=== PATIENT | female | born 1980 | race Caucasian/White ===

== ENCOUNTER 2018-09-15 07:48 | Day surgery (SDC) | payer MEDICAID ==
[~2018-09-15] VITALS: Ht 167.6 cm; Wt 90.7 kg
[2018-09-15] MEDS ORDERED: APIX5TAB MT (09:48)
[2018-09-15] MEDS ORDERED: METO-385 PO (09:48)
[2018-09-15] MEDS ORDERED: MIDAZOLAM HCL 2 MG/2 ML VIAL ONE ×5 (10:30→11:56)
[2018-09-15] MEDS ORDERED: FENTANYL CITRATE/PF 50MCG/ML 2ML VIAL ONE (10:30)
[2018-09-15 10:36] LABS: HEMATOCRIT 35.4 % (36.0-48.0); HEMOGLOBIN 11.7 g/dL (12.0-16.0); MEAN CORPUSCULAR HEMOGLOBIN 25.8 pg (28.0-32.0); MEAN CORPUSCULAR VOLUME 77.8 fL (81.0-99.0); PLATELET 201 x1000/uL (130-400); RED BLOOD CELL COUNT 4.55 mill/uL (4.2-5.4); RED CELL DISTRIBUTION WIDTH 16.1 % (11.6-14.6)
[2018-09-15 10:41] LABS: CHLORIDE 106 mEq/L (98-107); PARTIAL THROMBOPLASTIN TIME 32.4 sec (23.4-31.0); PROTHROMBIN TIME 10.6 sec (9.6-11.0)
[2018-09-15] MEDS ORDERED: IBUTILIDE FUMARATE 0.1MG/ML 10ML VIAL IV ONE (11:41)
== END 2018-09-15 19:00 | disposition home or self-care (01) ==
LOC: CCL 07:48
PROVIDERS: ATTEND Specialist
DX: I48.1 Persistent atrial fibrillation (principal); R94.31 Abnormal electrocardiogram [ECG] [EKG]; Z79.899 Other long term (current) drug therapy
CPT/HCPCS: 36415; 80048; 85027; 85610; 85730; 92960; 93005; 99152; 99153; J1742; J2250; J3010

== ENCOUNTER → 2019-11-17 | Outpatient (CLI) | payer MEDICAID ==
[~2019-11-17] MED LIST: APIX5TAB MT; CEFAZOLIN SODIUM 1000MG/VIAL ONE; EPHEDRINE SULFATE 50MG/ML VIAL ONE; FENTANYL CITRATE/PF 50MCG/ML 2ML VIAL ONE; GLYCOPYRROLATE 0.2 MG/ML 2ML VIAL ONE; HEPARIN 1000 UNITS/ML 10ML ONE; METO-385 PO; METOCLOPRAMIDE HCL 10MG/2ML VIAL ONE; MIDAZOLAM HCL 2 MG/2 ML VIAL ONE; NEOSTIGMINE METHYLSULFATE 1MG/ML 10 ML VIAL ONE; ONDANSETRON HCL 4MG/2ML INJ ONE; PANT40TA4 MT; PARO10TA74 MT; PHENYLEPHRINE HCL 10 MG/ML 1ML (IV VIAL) IV ONE; PROPOFOL 200MG/20ML VIAL IV ONE; ROCURONIUM BROMIDE 10MG/ML VIAL 5ML IV ONE; SODIUM CHLORIDE 0.9% 10ML VIAL ONE; SOTA80TA MT; SUCCINYLCHOLINE CHLORIDE 200MG/10ML IV ONE; TOPUD MT
== END | disposition home or self-care (01) ==
LOC: LAB 14:07
PROVIDERS: ATTEND Specialist
DX: Z20.828 Contact with and (suspected) exposure to other viral communicable diseases (principal); I48.19 Other persistent atrial fibrillation
CPT/HCPCS: C9803; U0003

== ENCOUNTER 2019-11-19 08:03 | Inpatient (IN) | payer MEDICAID ==
[~2019-11-19] VITALS: Ht 167.6 cm; Wt 105.7 kg
[~2019-11-19 08:03] MED LIST changes: -CEFAZOLIN SODIUM 1000MG/VIAL ONE; -EPHEDRINE SULFATE 50MG/ML VIAL ONE; -FENTANYL CITRATE/PF 50MCG/ML 2ML VIAL ONE; -GLYCOPYRROLATE 0.2 MG/ML 2ML VIAL ONE; -HEPARIN 1000 UNITS/ML 10ML ONE; +HEPARIN SODIUM 1,000 UNIT/1ML VIAL IV ONE; -METOCLOPRAMIDE HCL 10MG/2ML VIAL ONE; -MIDAZOLAM HCL 2 MG/2 ML VIAL ONE; -NEOSTIGMINE METHYLSULFATE 1MG/ML 10 ML VIAL ONE; -ONDANSETRON HCL 4MG/2ML INJ ONE; -PANT40TA4 MT; -PARO10TA74 MT; -PHENYLEPHRINE HCL 10 MG/ML 1ML (IV VIAL) IV ONE; -PROPOFOL 200MG/20ML VIAL IV ONE; -ROCURONIUM BROMIDE 10MG/ML VIAL 5ML IV ONE; -SODIUM CHLORIDE 0.9% 10ML VIAL ONE; -SOTA80TA MT; -SUCCINYLCHOLINE CHLORIDE 200MG/10ML IV ONE; -TOPUD MT
[2019-11-19] MEDS ORDERED: TOPUD MT (08:43)
[2019-11-19] MEDS ORDERED: PARO10TA74 MT (08:43)
[2019-11-19] MEDS ORDERED: SOTA80TA MT (08:43)
[2019-11-19] MEDS ORDERED: PANT40TA4 MT (08:43)
[2019-11-19 08:57] LABS: HEMOGLOBIN 10.3 g/dL (12.0-16.0); MEAN CORPUSCULAR HEMOGLOBIN 24.3 pg (28.0-32.0); MEAN CORPUSCULAR VOLUME 75.5 fL (81.0-99.0); PLATELET 189 x1000/uL (130-400); RED BLOOD CELL COUNT 4.24 mill/uL (4.2-5.4); RED CELL DISTRIBUTION WIDTH 17.4 % (11.6-14.6)
[2019-11-19 09:07] LABS: PARTIAL THROMBOPLASTIN TIME 29.3 sec (23.4-31.0); PROTHROMBIN TIME 10.2 sec (9.6-11.0)
[2019-11-19 09:20] LABS: UCG SCREEN NEGATIVE
[2019-11-19] MEDS ORDERED: HEPARIN 1,000 UNITS PREMIX 1,500 ML IV ONE (09:44)
[2019-11-19] MEDS ORDERED: LIDOCAINE HCL 1% 20ML VIAL (Pyxis) INJ ONE (10:03)
[2019-11-19] MEDS ORDERED: ATROPINE SULFATE 1MG/10ML SYR IV PRN (14:45)
[2019-11-19] MEDS ORDERED: ONDANSETRON HCL 4MG/2ML INJ IV PRN ×2 (14:45→15:15)
[2019-11-19 14:50] VITALS: BP 141/40
[2019-11-19] MEDS ORDERED: MEPERIDINE HCL/PF 25MG/ML CPJ IV PRN (15:15)
[2019-11-19] MEDS ORDERED: LABETALOL 5MG/ML SYR 20 MG/4 ML SYRINGE IV PRN (15:15)
[2019-11-19] MEDS ORDERED: HYDROMORPHONE HCL/PF 2MG/ML CPJ IV PRN (15:15)
[2019-11-19 17:18] VITALS: BP 140/41
[2019-11-19 17:21] VITALS: BP 144/83
[2019-11-19 17:50] VITALS: BP 129/82
[2019-11-19 19:13] VITALS: BP 134/73
[2019-11-19] MEDS ORDERED: APIXABAN 5 MG TABLET PO SCH (21:00)
[2019-11-19 22:13] VITALS: BP 123/69
[2019-11-19] MEDS: ACETAMINOPHEN 325MG TABLET PO PRN (22:42)
[2019-11-20] VITALS (8 sets, daily range): BP systolic 98–133; BP diastolic 50–76
[2019-11-20] MEDS: ACETAMINOPHEN 325MG TABLET PO PRN ×2 (05:02→09:30)
[2019-11-20 07:15] LABS: BASOPHILS % 0.2 % (0.0-2.0); EOSINOPHILS % 0.4 % (0.0-5.0); HEMATOCRIT. 26.8 % (36.0-48.0); HEMOGLOBIN. 8.7 g/dL (12.0-16.0); LYMPHOCYTES % 16.3 % (20.0-50.0); MEAN CORPUSCULAR HEMOGLOBIN 24.5 pg (28.0-32.0); MEAN CORPUSCULAR VOLUME 75.8 fL (81.0-99.0); MEAN PLATELET VOLUME 9.4 fl (7.4-10.4); MONOCYTES % 6.4 % (2.0-8.0); NEUTROPHILS % 76.7 % (40.0-76.0); PLATELET 159 x1000/uL (130-400); RED BLOOD CELL COUNT 3.54 mill/uL (4.2-5.4); RED CELL DISTRIBUTION WIDTH 17.2 % (11.6-14.6)
[2019-11-20 07:24] LABS: CHLORIDE 108 mEq/L (98-107)
[2019-11-20] MEDS ORDERED: APIXABAN 5 MG TABLET PO NR (11:00)
== END 2019-11-20 13:06 | disposition home or self-care (01) | DRG 175 ==
LOC: CCL 08:03 → 3WST 16:48
PROVIDERS: ADMIT Specialist; ATTEND Specialist
PROC: 02583ZZ Destruction of Conduction Mechanism, Percutaneous Approach (ICD-10-PCS; principal; 2019-11-19)
PROC: B244ZZZ Ultrasonography of Right Heart (ICD-10-PCS; 2019-11-19)
PROC: B245ZZZ Ultrasonography of Left Heart (ICD-10-PCS; 2019-11-19)
DX: I48.0 Paroxysmal atrial fibrillation (principal); R00.1 Bradycardia, unspecified; F32.9 Major depressive disorder, single episode, unspecified; F41.9 Anxiety disorder, unspecified
CPT/HCPCS: 36415; 80048; 81025; 85025; 85027; 85347; 93005; J0330; J0690; J1644; J2175; J2250; J2370; J2405; J2704; J2710; J2765; J3010; J3490